=== PATIENT | male | born 1995 | race Caucasian/White ===

== ENCOUNTER 2023-02-15 13:54 | Emergency (ER) | payer OTHER ==
[~2023-02-15] VITALS: Ht 167.6 cm; Wt 54.5 kg
[2023-02-15] MEDS ORDERED: KETOROLAC 60MG 2ML VIAL IM ONE (16:20)
[2023-02-15] MEDS ORDERED: LIDOCAINE 5% (LIDODERM) PATCH TD ONE ×2 (16:20→22:55)
[2023-02-15] MEDS ORDERED: diazePAM 5MG TABLET PO ONE (16:20)
[2023-02-15] MEDS ORDERED: NS 1,000 ML IV ONE (17:30)
[2023-02-15 18:05] LABS: BASO # 0.1 10^3/uL (0.0-0.2); BASO % 0.7 % (0.0-1.0); EOS % 0.5 % (0.0-3.0); HEMATOCRIT 38.9 % (42.0-52.0); HEMOGLOBIN 13.9 g/dl (13.5-17.5); LYMPH # 1.9 10^3/uL (1.5-5.0); LYMPH % 24.7 % (24.0-44.0); MEAN CORPUSCULAR HGB CONC 35.7 g/dl (32.0-36.5); MEAN CORPUSCULAR VOLUME 86.8 fl (80.0-96.0); MONO # 0.6 10^3/uL (0.0-0.8); MONO % 7.6 % (2.0-8.0); NEUTROPHILS # 5.1 10^3/uL (1.5-8.5); NEUTROPHILS % 66.4 % (36.0-66.0); PLATELET COUNT, AUTOMATED 174 10^3/uL (150-450); RED BLOOD COUNT 4.48 10^6/uL (4.30-6.10); WHITE BLOOD COUNT 7.6 10^3/uL (4.0-10.0)
[2023-02-15 18:25] LABS: BLOOD UREA NITROGEN 10 MG/DL (9-23); CALCIUM LEVEL 8.4 MG/DL (8.5-10.1); CARBON DIOXIDE LEVEL 28 MMOL/L (20-31); CHLORIDE LEVEL 106 MMOL/L (98-107); CPK CREATINE PHOSPHOKINASE 98 U/L (46-171); CREATININE FOR GFR 0.78 MG/DL (0.70-1.30); GLOMERULAR FILTRATION RATE > 60.0 (>60); GLUCOSE, FASTING 84 MG/DL (60-100); POTASSIUM SERUM 3.4 MMOL/L (3.5-5.1); SODIUM LEVEL 139 MMOL/L (136-145)
[2023-02-15] MEDS ORDERED: NAPR-837 PO (22:50)
[2023-02-15] MEDS ORDERED: METH-1165 PO (22:50)
[2023-02-15] MEDS ORDERED: ASPE4PAD TOP (22:50)
[2023-02-15] MEDS ORDERED: methocarbamoL 750 MG TAB PO ONE (22:55)
[2023-02-15 23:27] VITALS: BP 99/60
== END 2023-02-15 23:35 | disposition home or self-care (01) ==
LOC: M ED 13:54
DX: M54.50 Low back pain, unspecified (principal); M62.81 Muscle weakness (generalized)
CPT/HCPCS: 72146; 72148; 80048; 82550; 85025; 96372; 99284; J1885